=== PATIENT | male | born 1940 | race Caucasian/White ===

== ENCOUNTER → 2017-08-29 | Outpatient (CLI) | payer MEDICARE, OTHER ==
[~2017-08-29] MED LIST: CALC-545 PO; CARV6.252 PO; CHOL5000 PO; HYDR-3237 PO; KRIL1CAP19 PO; LISI5TAB7 PO; MAGN100T6 PO; METF500T4 PO; METO50TA4 PO; OMEG1CAP24 PO; RED600CA2 PO; REGADENOSON 0.4 MG/5 ML SYRINGE ONE
== END ==
LOC: CFH 08:17
PROVIDERS: ATTEND Internal Medicine Cardiovascular Disease
DX: Z48.812 Encounter for surgical aftercare following surgery on the circulatory system (principal); Z95.1 Presence of aortocoronary bypass graft
CPT/HCPCS: 78452; 93017; A9502; J2785